=== PATIENT | female | born 1955 | race Caucasian/White ===

== ENCOUNTER → 2017-02-26 | Outpatient (CLI) | payer OTHER ==
[~2017-02-26] MED LIST: CIPRO 500MG TA500 MG PO; MULTIPLE VITAMI1 CAP PO; [UNRECOGNIZED DRUG - OTHER] PO
== END ==
LOC: MC.RAD 13:17
DX: Z12.31 Encounter for screening mammogram for malignant neoplasm of breast (principal)

== ENCOUNTER → 2018-04-22 | Outpatient (CLI) | payer MEDICARE | LOC: MC.RAD 13:30 | DX: Z12.31 Encounter for screening mammogram for malignant neoplasm of breast (principal); Z78.0 Asymptomatic menopausal state ==

== ENCOUNTER 2019-03-22 17:35 | Emergency (ER) | payer MEDICARE ==
[~2019-03-22] VITALS: Ht 157.5 cm; Wt 55.3 kg
[2019-03-22 17:55] VITALS: BP 158/90; TEMP 97.1
[2019-03-22 21:27] VITALS: PULSE 75
== END 2019-03-22 21:27 | disposition home or self-care (01) ==
LOC: COL.ER 17:35
DX: M66.232 Spontaneous rupture of extensor tendons, left forearm (principal); W19.XXXA Unspecified fall, initial encounter; Y92.009 Unspecified place in unspecified non-institutional (private) residence as the place of occurrence of the external cause; Y93.21 Activity, ice skating

== ENCOUNTER 2019-05-21 09:00 | Outpatient (RCR) | payer MEDICARE | END 2019-07-28 | disposition home or self-care (01) | LOC: WSOT | DX: Z98.890 Other specified postprocedural states (principal) ==